=== PATIENT | female | born 1940 | race Caucasian/White ===

== ENCOUNTER 2016-08-05 11:29 | Inpatient (IN) | payer MEDICARE, OTHER ==
--- NOTE | ~2016-08-05 | CN ---
Consultation Report [facility] [address] [place]. [address] NAME: NERISSA SEAY : 40 STATUS : ADM IN PAT#: [id number] AGE: 75 ADM/REG DATE : 08/06/16 MR#: [id number] REPORT SERV DATE: 08/10/16 DICTATED BY: HEMAL GUAMAN DATE: 08/10/16 REPORT STATUS : Draft TRANSCRIBED BY: MODL DATE: 08/10/16 PSYCHIATRIC CONSULTATION DATE OF CONSULTATION: 08/10/2016 I reviewed this patient's medical record. I discussed patient's status with Dr. Cohen who is her current hospitalist. HISTORY OF PRESENT ILLNESS: She was admitted with confusion and progressive paraplegia. She has been episodically agitated since admission. PAST PSYCHIATRIC HISTORY: I previously saw her in consultation on 05/06/2016, when she was admitted with a 2-3 day history of confusion. At that time, the only finding of significance was some mild affective lability on mental status examination. She had her next admission on 06/16/2016 again with a few day history of confusion and also some shortness of breath. During that admission, she was seen by Neurology because she had a reported seizure in her long term. She was started on Keppra and she is still on this medication. Her EEG which was done at that time did not show seizure activity. It did show slowing, consistent with encephalopathy. SOCIAL HISTORY: She used to do secretarial work. 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 Most recently, she has been residing in an assisted living facility. She reports that she really likes the assisted living placement. Her brother is her power of commercial litigation attorney and her healthcare agent. FAMILY HISTORY: No psychiatric illness. MENTAL STATUS: She was very pleasant and cooperative in attitude. She said she remembered me from my previous consultation which was just over 3 months ago. Her mood was euthymic. She was not aware that she had some episodes of agitation since her admission. Her affect was appropriate. Her thinking was logical. She had some paranoid ideation about her brother not giving her the money which she sometimes needs and not handling her affairs in a proper manner. These were somewhat vague accusations and were not quite delusional in degree. She had no current hallucinations. 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 RECOMMENDATIONS: We should consider re-consulting Neurology. There is a possibility that the Jlpp could be contributing to some of her confusion. I think we should continue Seroquel if it appears to be helpful for the episodes of agitation. I will sign off. DK/MODL Consultation Report [facility] [address] [address] NAME: NERISSA SEAY : 40 STATUS : ADM IN PAT#: [id number] AGE: 75 ADM/REG DATE : 08/06/16 MR#: [id number] REPORT SERV DATE: 08/10/16 DICTATED BY: HEMAL GUAMAN DATE: 08/10/16 REPORT STATUS : Draft TRANSCRIBED BY: TIMOTHY DATE: 08/10/16 Hemal Guaman M.D. / [id number] CC: MD Chucho Knox MD
--- NOTE | ~2016-08-05 | HP ---
History And Physical [facility] [id number] [place]. [address] NAME: NERISSA SEAY : 40 STATUS : ADM Dylan PAT#: [id number] AGE: 75 ADM/REG DATE : 08/05/16 MR#: [id number] REPORT SERV DATE: 08/06/16 DICTATED BY: ELIZABETH MATTSON DATE: 08/05/16 REPORT STATUS : Draft TRANSCRIBED BY: MODKaila DATE: 08/05/16 DATE OF ADMISSION: 08/05/2016 CHIEF COMPLAINT: A 75-year-old female presenting with confusion, progressive paraplegia. HISTORY OF PRESENTING ILLNESS: The patient's history was obtained through careful interview with the patient and a phone conversation with her nscoha-fc-jxj, Germaine Lombardi, coupled with review of [facility] medical records. The patient had been residing at [facility], but then a month ago was thought to be stable enough to transition to an assisted living facility in [place], [place]. She has been doing fairly well there, but unfortunately has had decreased mobility to the point where she has only been sitting in a wheelchair "all day long" and has not been able to walk without complete assistance and often needs assistance with other activities of daily living. Of particular concern though is over the last four or five days the patient has become increasingly ill with particular symptoms of agitation, confusion, disorientation. Finally, the patient's symptoms became so severe that she was transferred to our emergency department for further evaluation and stabilization. Apparently, she had one episode of nausea, vomiting, and diarrhea. She has had increasing cough productive of a clear sputum without any green or yellow discoloration though, and she denies any shortness of breath. She denies any pain at all, stating she has no chest pain, no abdominal pain, no headache, no back pain, no joint pain. She has had loss of urine continence, but no other urinary symptoms. No fevers or chills are reported. REVIEW OF SYSTEMS: Otherwise, a 14-point review of systems was obtained and was negative, although could question validity of the patient's answers in light of her confusion and poor recollection of recent history. PAST MEDICAL HISTORY: 1. Diabetes, hemoglobin A1c of 7.4 in June 2016. 2. Atrial fibrillation. 3. Pacemaker. 4. Hypertension. 5. Elevated cholesterol. 6. Anemia. 7. Chronic kidney disease, stage 3. Baseline creatinine of 1.3 to 1.7. History And Physical [address] [address] NAME: NERISSA SEAY : 40 STATUS : ADM Dylan PAT#: [id number] AGE: 75 ADM/REG DATE : 08/05/16 MR#: [id number] REPORT SERV DATE: 08/06/16 DICTATED BY: ELIZABETH MATTSON DATE: 08/05/16 REPORT STATUS : Draft TRANSCRIBED BY: TIMOTHY DATE: 08/05/16 8. Colon polyps seen by Dr. Mustafa. 9. Leg cellulitis. 10.Coronary artery disease, status post stent placement. 11.Seizure disorder, on Keppra. 12.Urinary tract infections. 13.Cholelithiasis. PAST SURGICAL HISTORY: Pacemaker. ALLERGIES: CELEBREX. SOCIAL HISTORY: No tobacco abuse. No alcohol abuse. Resides at an assisted living facility in [place], [place]. Has been a since November 2012. Retired special education secretary. She has no biological children. CODE STATUS: DNR. FAMILY HISTORY: Father at 44 years of age of a heart attack. Brother of liver disease. Mother at 83 years of age of stroke. CURRENT MEDICATIONS: 1. Lipitor 40 mg daily. 2. Dulcolax suppository. 3. Coreg 12.5 mg p.o. b.i.d. 4. Lasix 20 mg daily. 5. Hydrocodone. 6. Sliding-scale insulin. 7. Lantus 20 units subcutaneous in the morning. 8. Keppra 750 mg p.o. b.i.d. 9. Milk of magnesia. 10.Nitroglycerin. 11.Zofran p.r.n. 12.Potassium 20 mEq p.o. daily. 13.Phenergan p.r.n. 14.Altace 2.5 mg daily. 15.Enema as needed. PHYSICAL EXAMINATION: VITAL SIGNS: Temperature 97.7, pulse 68, blood pressure 133/74, respiratory rate 18, and O2 saturation 98% on room air. GENERAL: A chronically ill-appearing female, but in no evidence of overt acute distress. HEENT: Pupils equal, round, and reactive to light. No conjunctival pallor. No scleral icterus. Nares are patent. Oropharynx is clear of obstruction. Very dry mucous membranes. NECK: Trachea midline. No thyromegaly. LYMPH: No cervical lymphadenopathy. No supraclavicular lymphadenopathy. RESPIRATORY: The patient has scattered rhonchi on examination. No overt wheezes though. History And Physical [facility] [address] [place]. [address] NAME: NERISSA SEAY : 40 STATUS : ADM Dylan PAT#: [id number] AGE: 75 ADM/REG DATE : 08/05/16 MR#: [id number] REPORT SERV DATE: 08/06/16 DICTATED BY: ELIZABETH MATTSON DATE: 08/05/16 REPORT STATUS : Draft TRANSCRIBED BY: TIMOTHY DATE: 08/05/16 She has a nonlabored respiratory effort. CARDIOVASCULAR: Regular rate and rhythm. No murmurs, rubs, or gallops. No current extremity edema is appreciated. ABDOMEN: Soft, nontender, and nondistended. Normal bowel sounds auscultated throughout. No flank tenderness. No hepatosplenomegaly. DERMATOLOGICAL: Warm and dry extremities. No pallor. No cyanosis. There is tenting of the skin to suggest dehydration. PSYCHIATRIC: Very irritable and agitated mood with an animated affect. Some time she is actually overtly threatening to me while I am interviewing her. She is alert and she is oriented to location, but poorly oriented to time, and her recent history. LABORATORY DATA: White blood cell count 4.2, hemoglobin 11, hematocrit 32, and platelets 126. Sodium 142, potassium 4.9, chloride 107, bicarb 29, BUN 26, creatinine 1.70, and glucose 192. Liver enzymes within normal limits. Troponin 0.06. ABG demonstrates pH 7.31, a PaCO2 of 50, a pO2 of 88, and bicarb of 24 on 2 L nasal cannula. Urinalysis shows small amount of leukocyte esterase, 14 white blood cells, 73 hyaline casts. STUDIES: 1. Chest x-ray by my own evaluation shows no acute cardiopulmonary process. 2. EKG by my own evaluation shows ventricular pacing. ASSESSMENT AND PLAN: 1. Acute encephalopathy, provide supportive care. 2. Possible urinary tract infection ? For now we will check urine culture and place on empiric IV antibiotics until results are able to rule this out. 3. Dehydration. Place on IV fluids. Hold Lasix. 4. Functional paraplegia. Now has been more and more dependent for activities of daily living and wheelchair bound. We will obtain a physical therapy evaluation, case management evaluation. Question whether the patient needs a long-term placement in a nursing facility or at least good rehab stay ? 5. Pancytopenia. Check thyroid, iron, B12, folate, serum protein electrophoresis. 6. Atrial fibrillation status post cardiac ablation and pacemaker placement. Not placed on anticoagulation, possibly because of fall risk ? 7. DNR status. 8. Acute bronchitis. Place on DuoNeb nebulizers and monitor. NILO/TIMOTHY Elizabeth Montejo History And Physical [address] [address] NAME: NERISSA SEAY : 40 STATUS : ADM Dylan PAT#: [id number] AGE: 75 ADM/REG DATE : 08/05/16 MR#: [id number] REPORT SERV DATE: 08/06/16 DICTATED BY: ELIZABETH MATTSON DATE: 08/05/16 REPORT STATUS : Draft TRANSCRIBED BY: TIMOTHY DATE: 08/05/16 Yoko Mattson / [id number] CC: MD Chucho Knox MD
--- NOTE | ~2016-08-05 | IDS ---
Interim Discharge Summary [facility] [address] [place]. [address] NAME: NERISSA SEAY : 40 STATUS : ADM IN [facility]#: [id number] AGE: 75 ADM/REG DATE : 08/06/16 MR#: [id number] REPORT SERV DATE: 08/11/16 DICTATED BY: CYRUS GARZA DATE: 08/10/16 REPORT STATUS : Draft TRANSCRIBED BY: MODL DATE: 08/10/16 ADMISSION DATE: 08/06/2016 DISCHARGE DATE: WORKING DIAGNOSES: 1. Acute encephalopathy, resolved. 2. Functional paraplegia. 3. Agitations and irritability. 4. Urinary tract infection. 5. Acute kidney injury, resolved. 6. Mild hypercapnic respiratory failure on admission, resolved clinically. CONSULT: Psychiatry. PROCEDURES: None. HOSPITAL COURSE: This is a 75-year-old lady who was admitted to the hospital with acute encephalopathy. For details, please refer to H and P by Dr. Cash. In summary, the patient was admitted for an acute episode of encephalopathy which basically resolved over the first night of hospital stay. The patient was a borderline inpatient admission and it was a difficult situation to plan for a safe discharge because the patient is from an assisted living, but the patient is functionally paraplegic and there was a concern whether the patient will be able to return to her assisted living facility as the patient will need more help than just assisted living. The patient had been at assisted living for about a month and prior to that the patient was at [facility] in [place] and where she has basically used up all of her allowed shelter stays for the entire year. At baseline, the patient is very irritable and aggressive, but she is not really demented as this is more of her baseline personality. Psychiatry was consulted to see if patient will qualify for a Geropsych, but unfortunately, the patient really does not qualify for Geropsych transfer. The patient's fjwshg-pn-uti will have been the only person to visit the patient on regular basis and I believe she is the only closest person here in town. She is willing to take the patient home after hospital bed has been set up at her house which will be told tomorrow. In the meantime, we are trying to see if Physical Therapy can evaluate the patient again, and if the patient is able to transfer from bed to wheelchair as she has done so in the past, then she may be able to go back to her assisted living facility. One challenge is that the patient has been refusing to work with Physical Therapy, but hopefully, the patient will be in a better mood tomorrow. Other mild problems that she had on admission such as a urinary tract infection, acute kidney injury, and mild hypercapnic respiratory failure have all been resolved and the patient has been stable throughout the hospital stay thus far. DISPOSITION: Either discharge to the patient's wxahvd-dl-sah's home tomorrow or return to assisted living if the patient does well with physical therapy. [facility] [place] Interim Discharge Summary [address] [address] NAME: NERISSA SEAY : 40 STATUS : ADM IN [facility]#: [id number] AGE: 75 ADM/REG DATE : 08/06/16 MR#: [id number] REPORT SERV DATE: 08/11/16 DICTATED BY: CYRUS GARZA DATE: 08/10/16 REPORT STATUS : Draft TRANSCRIBED BY: TIMOTHY DATE: 08/10/16 Cyrus Garza MD / [id number] CC: MD Chucho Knox MD
--- NOTE | ~2016-08-05 | DS ---
Discharge Summary [facility] [address] [place]. [address] NAME: NERISSA SEAY : 40 STATUS : DIS IN PAT#: [id number] AGE: 75 ADM/REG DATE : 08/06/16 MR#: [id number] REPORT SERV DATE: 08/13/16 DICTATED BY: DATE: REPORT STATUS : Draft TRANSCRIBED BY: MODL DATE: 08/12/16 ADMISSION DATE: 08/06/2016 DISCHARGE DATE: 08/12/2016 [facility] ATTENDING DOCTORS: 1. Keith Connell M.D. 2. Cyrus Cohen MD. 3. Amari Maciel M.D. CONSULTANTS: Included Dr. Hemal Ospina of Psychiatry. DISCHARGE DIAGNOSES: 1. Generalized weakness. 2. Functional paraplegia. 3. Agitation and irritability - seen by Psychiatry with finding of mild affective lability versus early mild dementia. 4. Acute encephalopathy - resolved. 5. Acute kidney injury - resolved. 6. Mild hypercapnia at admission - resolved. 7. History of sleep apnea. 8. Hypertension. 9. Hyperlipidemia. 10.Chronic kidney disease, stage 2 to 3. 11.History of atrial fibrillation, status post pacemaker placement. 12.Insulin-dependent diabetes mellitus type 2. 13.History of a seizure - on Keppra chronically. 14.History of urinary tract infections - no evidence of urinary tract infection this admission. 15.Obesity. 16.Anemia of chronic kidney disease. 17.History of colon polyps. 18.History of lower extremity cellulitis. 19.History of coronary artery disease and prior stent placement. IMAGING AND DIAGNOSTICS: 1. PA and lateral chest x-ray on 08/05/2016 shows cardiomegaly, pacemaker, shallow inspiration. No acute abnormality. 2. Echocardiogram from 06/17/2016 hospitalization showing mild left ventricular diastolic dysfunction with moderately decreased systolic function, ejection fraction 55%, mild pulmonary hypertension, and moderate tricuspid regurgitation. PERTINENT LABS: Hazy urine with positive protein, small leukocyte esterase, 14 white blood cells, 9 squamous epithelial cells, rare bacteria, and 73 hyaline casts. Discharge Summary [facility] [address] [place]. [address] NAME: NERISSA SEAY : 40 STATUS : DIS IN PAT#: [id number] AGE: 75 ADM/REG DATE : 08/06/16 MR#: [id number] REPORT SERV DATE: 08/13/16 DICTATED BY: DATE: REPORT STATUS : Draft TRANSCRIBED BY: MODL DATE: 08/12/16 Blood cultures x2, no growth during the hospitalization and urine culture showed 75,000 colony-forming units of mixed isma suggestive of contamination. Serum protein electrophoresis, which was normal. B12 of 428, folate of 9.8, and sedimentation rate 44. BRIEF HISTORY: For full details, please see the previously dictated history of present illness by Dr. Jarod Cash. The patient is a 75-year-old white female, who due to chronic medical issues and obesity has developed a diagnosis of functional paraplegia. She had been residing at [facility], about a month ago was felt stable enough to transition to an assisted living facility in [place], [place]. She was doing fairly well there, but then experienced decreased mobility to the point where she was sitting in the wheelchair "all day long" and was unable to walk without complete assistance. Then, over the preceding 4 to 5 days, the patient became agitated, confused, and disoriented. Apparently, she had an episode of nausea, vomiting, and diarrhea as well as a cough productive of clear sputum, and some loss of urinary continence. She was brought to the [facility] Emergency Department for evaluation, where she was felt to have a possible urinary tract infection as well as dehydration and possible acute bronchitis. She was admitted to the Hospitalist Service for further management. HOSPITAL COURSE: The patient was placed on empiric Rocephin. Subsequent urine cultures were negative. Chest x-ray was clear and the antibiotic was discontinued as the patient did not appear to actually have acute infection. Her encephalopathy resolved after the first night of hospitalization. The patient worked with Physical Therapy, but remained too weak to return to assisted living at the time of discharge as she was unable to transfer or use the bathroom independently. Because the patient has exhausted her allowed longterm days for the year, she was not appropriate for return to a prison facility either. Thus, the patient is being discharged home with her yoercz-zs-yzx, Germaine Dallas, with additional home health and home physical therapy. Another issue this hospitalization was irritability, aggressive behavior, and agitation. The patient was seen by Psychiatry and not felt to have dementia per se. In extensive discussions with her zyfrrz-sb-dto, this may be the patient's baseline personality, and she may have a personality disorder. She was treated with Seroquel for acute agitation which did result in some improvement in her ability to tolerate the hospital stay, and resulted in improved interactions with others while she was in the hospital. This medication will be continued as an outpatient. The patient continued to complain of occasional wheezing during the hospitalization. Chest x-rays remained clear, and she again was not felt to have an indication for an antibiotic. She was placed on DuoNebs with improvement and this will be continued as an outpatient. Based on prior sleep study results and echocardiogram results, she does appear to have some obstructive sleep apnea and possible right heart strain. She is being continued on a diuretic as well and this can be re-evaluated as an outpatient. DISCHARGE DISPOSITION: To the patient's hgvtkg-rg-dud's house with no specific activity restrictions. She should adhere to a diabetic and cardiac diet for comorbidities. Home Discharge Summary [address] [address] NAME: NERISSA SEAY : 40 STATUS : DIS IN PAT#: [id number] AGE: 75 ADM/REG DATE : 08/06/16 MR#: [id number] REPORT SERV DATE: 08/13/16 DICTATED BY: DATE: REPORT STATUS : Draft TRANSCRIBED BY: TIMOTHY DATE: 08/12/16 health for prison and physical therapy are being set up, and the patient needs to follow up with Dr. Fernandez in 1 to 2 weeks. DISCHARGE MEDICATIONS: Include: 1. Atorvastatin 40 mg p.o. at bedtime. 2. Coreg 12.5 mg p.o. twice a day. 3. Lantus 20 units subcu q.a.m. 4. NovoLog FlexPen sliding scale before meals t.i.d. 5. Keppra 750 mg p.o. twice a day. 6. Altace 2.5 mg p.o. q.a.m. 7. Seroquel 25 mg p.o. twice a day. 8. DuoNeb 3 mL inhaled every 6 hours while awake. 9. Lasix 20 mg p.o. daily. 10.Potassium chloride 20 mEq p.o. daily. 11.Dulcolax 10 mg P.R. daily p.r.n. constipation. 12.Enema 1 dose daily as needed for constipation. 13.Hydrocodone/acetaminophen 5/325 mg, one tablet p.o. twice a day as needed. 14.Milk of magnesia 30 mL p.o. daily as needed for constipation. 15.Sublingual nitroglycerin 0.4 mg as needed for chest pain. 16.Zofran 4 mg p.o. every 4 hours as needed. 17.Phenergan 25 mg p.o. every 4 hours as needed. Prescriptions were provided for Ozzy Coleman, and for a nebulizer. Forty minutes was spent in completion of the discharge. MARY/TIMOTHY ari Maciel M.D. / [id number] CC: Yoko Read MD
[~2016-08-05 11:29] MED LIST: ACET500CAP PO; ADVIL PO; AMARYL2 PO; AQUASOL E50 UNT/ML PO; ARANESP200 IV; BISR PR; CALTRA600D PO; COREG12 PO; COREG25 PO; COZ25 PO; COZ50 PO; COZAAR100 MG PO; DABIGATRAN; DSS PO; FERROUS SULF325 M1 PO; FISH-EPA1000 MG PO; GLUCOPHAGE1000 MG PO; GLUCPH PO; HYDRALAZINE100 MG PO; HYZAAR 50/12.51 TAB PO; IMOD PO; K-TABS10 MEQ PO; KDUR20 PO; KLOR-CON M2020 MEQ PO; L20 PO; L40 PO; L80 PO; LANTUS SC; LANTUSCART SC; MAGOX4 PO; MCZ25 PO; MOMUD PO; NITROSTAT0.4 MG SL; NORCO1 TA1 PO; NOVOPEN SC; NTG150 SL; PR12.5 PO; PR25 PO; PRADAXA150 MG PO; PRADAXA75 MG PO; PRAVAC PO; SLOW FE160 MG PO; SPIRO25 PO; TRILIPIX45 MG PO; [UNRECOGNIZED DRUG - OTHER]
[2016-08-05 13:51] LABS: BASOPHILS 0.5 %; BASOPHILS ABSOLUTE 0.02 10/3/uL (0.0-0.16); EOSINOPHILS 1.2 %; EOSINOPHILS ABSOLUTE 0.05 10/3/uL (0.0-0.53); HEMATOCRIT 32.1 % (36.0-48.0); HEMOGLOBIN 10.6 g/dL (12.0-16.0); IMMATURE GRANULOCYTES 0.2 %; IMMATURE GRANULOCYTES ABSOLUTE 0.01 10/3/uL (0.0-0.11); LYMPHOCYTES 14.2 %; LYMPHOCYTES ABSOLUTE 0.59 10/3/uL (0.67-4.30); MEAN CORPUSCULAR HEMOGLOB 29.7 pg (26.0-34.0); MEAN CORPUSCULAR VOLUME 89.9 fL (80-100); MEAN PLATELET VOLUME 9.4 fL (9.2-13.0); MONOCYTES 13.7 %; MONOCYTES ABSOLUTE 0.57 10/3/uL (0.21-1.20); NEUTROPHILS 70.2 %; NEUTROPHILS ABSOLUTE 2.92 10/3/uL (2.02-8.40); PLATELET COUNT 126 10/3/uL (150-400); RBC DISTRIBUTION WIDTH 16.3 % (12.0-16.0); RED CELL COUNT 3.57 10/6/uL (4.0-5.6); WHITE BLOOD CELLS 4.2 10/3/uL (4.5-10.5)
[2016-08-05 13:52] LABS: MANUAL DIFF NO %
[2016-08-05 14:07] LABS: A/G RATIO 0.8 (0.7-1.9); ALBUMIN 3.4 G/DL (3.5-5.0); ALKALINE PHOSPHATASE 81 U/L (45-117); BUN (BLOOD UREA NITROGEN) 26 MG/DL (6-23); CHLORIDE, SERUM 107 MMOL/L (96-112); CO2 (CARBON DIOXIDE) 27 MMOL/L (24-34); GFR AFRICAN AMERICAN 34 ML/MIN (>=60); GFR NON AFRICAN AMERICAN 29 ML/MIN (>=60); GLOBULIN 4.1 G/DL (2.5-4.1); GLUCOSE, SERUM 192 MG/DL (60-99); POTASSIUM, SERUM 4.9 MMOL/L (3.5-5.3); SGOT(AST) 10 U/L (5-40); SGPT(ALT) 13 U/L (5-65); SODIUM, SERUM 142 MMOL/L (135-148); TOTAL BILIRUBIN 1.2 MG/DL (0-1.2); TOTAL PROTEIN 7.5 G/DL (6.0-8.5)
[2016-08-05 14:08] LABS: TROPONIN I 0.06 NG/ML (<0.05)
[2016-08-05 14:15] LABS: ASCORBIC ACID (UR NOT ORDER) NEG (NEG); BILIRUBIN, URINE NEGATIVE (NEG); ER URINALYSIS TAT 0 Hrs 13 Mins; KETONE, URINE NEGATIVE (NEG); LEUKOCYTE ESTERASE(NOT OR SMALL (NEG); NITRITE (URINE) NEG (NEG); WBC (NOT ORDERED) (RFLEX) 14 (0-5)
[2016-08-05 17:28] LABS: BE (BASE EXCESS) -2.2 MEQ/L (0 +/- 2.5); CARBOXYHEMOGLOBIN 1.4 % (0-3); DEVICE NC; HCO3 (ACTUAL BICARBONATE) 24.3 MEQ/L (23-27); HEMOBLOGIN CONTENT 10.6 G/DL (12-16); INSTRUMENT SERIAL # 8087; METHEMOGLOBIN 0.2 % (0-3); O2 CONTENT 14.1 VOL% (18-24); PCO2 (CO2 TENSION) 50 MMHG (35-45); PO2 (O2 TENSION) 88 MMHG (79-93); SAMPLE Arterial; pH 7.31 (7.37-7.43)
[2016-08-05 17:29] LABS: ALLENS TEST Pos
[2016-08-05] MEDS ORDERED: L20 PO (18:33)
[2016-08-05] MEDS ORDERED: COREG12 PO (18:33)
[2016-08-05] MEDS ORDERED: LIPITOR40 PO (18:33)
[2016-08-05] MEDS ORDERED: LANTUSCART SC (18:33)
[2016-08-05] MEDS ORDERED: KEPPRA750 MG PO (18:33)
[2016-08-05] MEDS ORDERED: KLOR-CON M2020 MEQ PO (18:34)
[2016-08-05] MEDS ORDERED: ALTA2.5 PO (18:34)
[2016-08-05] MEDS ORDERED: BISR PR (18:35)
[2016-08-05] MEDS ORDERED: [UNRECOGNIZED DRUG - OTHER] PR (18:36)
[2016-08-05] MEDS ORDERED: NORCO1 TA1 PO (18:36)
[2016-08-05] MEDS ORDERED: NOVOPEN SC (18:37)
[2016-08-05] MEDS ORDERED: NITROSTAT0.4 MG PO (18:37)
[2016-08-05] MEDS ORDERED: MOMUD PO (18:37)
[2016-08-05] MEDS ORDERED: ZOFRAN ODT4 MG PO (18:38)
[2016-08-05] MEDS ORDERED: PR25 PO (18:38)
[2016-08-06 04:57] LABS: BASOPHILS 0.9 %; BASOPHILS ABSOLUTE 0.03 10/3/uL (0.0-0.16); EOSINOPHILS ABSOLUTE 0.07 10/3/uL (0.0-0.53); HEMOGLOBIN 9.2 g/dL (12.0-16.0); IMMATURE GRANULOCYTES 0.3 %; IMMATURE GRANULOCYTES ABSOLUTE 0.01 10/3/uL (0.0-0.11); LYMPHOCYTES 21.4 %; LYMPHOCYTES ABSOLUTE 0.74 10/3/uL (0.67-4.30); MEAN CORPUSCULAR HEMOGLOB 30.1 pg (26.0-34.0); MEAN CORPUSCULAR VOLUME 91.2 fL (80-100); MEAN PLATELET VOLUME 9.2 fL (9.2-13.0); MONOCYTES 16.2 %; MONOCYTES ABSOLUTE 0.56 10/3/uL (0.21-1.20); NEUTROPHILS 59.2 %; NEUTROPHILS ABSOLUTE 2.05 10/3/uL (2.02-8.40); PLATELET COUNT 99 10/3/uL (150-400); RBC DISTRIBUTION WIDTH 16.6 % (12.0-16.0); RED CELL COUNT 3.06 10/6/uL (4.0-5.6); WHITE BLOOD CELLS 3.5 10/3/uL (4.5-10.5)
[2016-08-06 05:00] LABS: INTERNATIONAL NORMAL RATI 1.3 UNITS (-); PARTIAL THROMBO TIME 27.3 SEC (22.5-37.2); PROTIME (NOT ORD) 16.5 SEC (12.0-14.5)
[2016-08-06 05:04] LABS: HEMATOCRIT 27.9 % (36.0-48.0); MANUAL DIFF NO %
[2016-08-06 05:43] LABS: A/G RATIO 0.9 (0.7-1.9); ALKALINE PHOSPHATASE 73 U/L (45-117); BUN (BLOOD UREA NITROGEN) 26 MG/DL (6-23); CALCIUM, SERUM 8.5 MG/DL (8.5-10.4); CHLORIDE, SERUM 108 MMOL/L (96-112); CO2 (CARBON DIOXIDE) 29 MMOL/L (24-34); CREATININE 1.43 MG/DL (0.55-1.02); FERRITIN 147 NG/ML (8-252); GFR AFRICAN AMERICAN 41 ML/MIN (>=60); GFR NON AFRICAN AMERICAN 36 ML/MIN (>=60); GLOBULIN 3.5 G/DL (2.5-4.1); IRON BINDING CAPACITY 216 MCG/DL (225-410); IRON, SERUM 41 MCG/DL (35-150); POTASSIUM, SERUM 4.5 MMOL/L (3.5-5.3); SGOT(AST) 12 U/L (5-40); SGPT(ALT) 11 U/L (5-65); SODIUM, SERUM 144 MMOL/L (135-148); TOTAL PROTEIN 6.5 G/DL (6.0-8.5)
[2016-08-06 05:46] LABS: FOLATE 9.8 NG/ML (>5.2); GLUCOSE, SERUM 151 MG/DL (60-99); T PROTEIN (ELECT)(NOT OR 6.1 G/DL (6.0-8.5); TOTAL BILIRUBIN 0.5 MG/DL (0-1.2); TROPONIN I 0.05 NG/ML (<0.05)
[2016-08-06 06:48] LABS: SED RATE 44 MM/HR (0-20)
[2016-08-06 11:34] LABS: A/G 1.25 RATIO (0.9-2.10); ALB RELATIVE % 55.5 % (60.0-89.0); ALBUMIN (ELECTRO) 3.39 GM/DL (3.2-5.5); ALPHA 1 (ELECTRO) 0.23 GM/DL (0.1-0.4); ALPHA 1 RELAT % (NOT ORD) 3.7 % (1.0-4.0); ALPHA 2 (ELECTRO) 0.72 GM/DL (0.5-1.10); ALPHA 2 RELAT % 11.8 % (4.5-26.0); BETA GLOBULIN (SPE) 0.76 GM/DL (0.60-1.30); BETA RELATIVE % 12.5 % (9.0-22.0); GAMMA GLOBULIN (SPE) 1.01 G/DL (0.70-1.60); GAMMA RELAT % 16.5 % (6.0-22.0)
[2016-08-07 06:09] LABS: BASOPHILS 0.6 %; BASOPHILS ABSOLUTE 0.03 10/3/uL (0.0-0.16); EOSINOPHILS 4.9 %; EOSINOPHILS ABSOLUTE 0.25 10/3/uL (0.0-0.53); HEMATOCRIT 29.5 % (36.0-48.0); HEMOGLOBIN 9.9 g/dL (12.0-16.0); IMMATURE GRANULOCYTES 0.4 %; IMMATURE GRANULOCYTES ABSOLUTE 0.02 10/3/uL (0.0-0.11); LYMPHOCYTES 18.7 %; LYMPHOCYTES ABSOLUTE 0.95 10/3/uL (0.67-4.30); MEAN CORPUS HGB CONC 33.6 g/dL (32.0-36.0); MEAN CORPUSCULAR HEMOGLOB 30.5 pg (26.0-34.0); MEAN CORPUSCULAR VOLUME 90.8 fL (80-100); MEAN PLATELET VOLUME 9.7 fL (9.2-13.0); MONOCYTES 17.8 %; NEUTROPHILS 57.6 %; NEUTROPHILS ABSOLUTE 2.92 10/3/uL (2.02-8.40); PLATELET COUNT 97 10/3/uL (150-400); RBC DISTRIBUTION WIDTH 16.7 % (12.0-16.0); RED CELL COUNT 3.25 10/6/uL (4.0-5.6)
[2016-08-07 06:12] LABS: MANUAL DIFF NO %; WHITE BLOOD CELLS 5.1 10/3/uL (4.5-10.5)
[2016-08-07 06:24] LABS: CALCIUM, SERUM 8.6 MG/DL (8.5-10.4); CHLORIDE, SERUM 107 MMOL/L (96-112); CO2 (CARBON DIOXIDE) 28 MMOL/L (24-34); CREATININE 1.29 MG/DL (0.55-1.02); GFR AFRICAN AMERICAN 47 ML/MIN (>=60); GFR NON AFRICAN AMERICAN 40 ML/MIN (>=60); POTASSIUM, SERUM 4.2 MMOL/L (3.5-5.3); SODIUM, SERUM 142 MMOL/L (135-148)
[2016-08-07 06:26] LABS: BUN (BLOOD UREA NITROGEN) 22 MG/DL (6-23); GLUCOSE, SERUM 97 MG/DL (60-99)
[2016-08-09 05:19] LABS: BASOPHILS 1.1 %; BASOPHILS ABSOLUTE 0.04 10/3/uL (0.0-0.16); EOSINOPHILS 6.1 %; EOSINOPHILS ABSOLUTE 0.22 10/3/uL (0.0-0.53); HEMATOCRIT 30.1 % (36.0-48.0); IMMATURE GRANULOCYTES 0.3 %; IMMATURE GRANULOCYTES ABSOLUTE 0.01 10/3/uL (0.0-0.11); LYMPHOCYTES 23.4 %; LYMPHOCYTES ABSOLUTE 0.84 10/3/uL (0.67-4.30); MANUAL DIFF NO %; MEAN CORPUS HGB CONC 33.2 g/dL (32.0-36.0); MEAN CORPUSCULAR VOLUME 90.4 fL (80-100); MEAN PLATELET VOLUME 9.6 fL (9.2-13.0); MONOCYTES 13.6 %; MONOCYTES ABSOLUTE 0.49 10/3/uL (0.21-1.20); NEUTROPHILS 55.5 %; NEUTROPHILS ABSOLUTE 1.99 10/3/uL (2.02-8.40); PLATELET COUNT 109 10/3/uL (150-400); RBC DISTRIBUTION WIDTH 16.5 % (12.0-16.0); RED CELL COUNT 3.33 10/6/uL (4.0-5.6); WHITE BLOOD CELLS 3.6 10/3/uL (4.5-10.5)
[2016-08-09 05:30] LABS: CALCIUM, SERUM 8.5 MG/DL (8.5-10.4); CHLORIDE, SERUM 109 MMOL/L (96-112); CO2 (CARBON DIOXIDE) 29 MMOL/L (24-34); CREATININE 1.02 MG/DL (0.55-1.02); GFR AFRICAN AMERICAN 62 ML/MIN (>=60); GFR NON AFRICAN AMERICAN 54 ML/MIN (>=60); POTASSIUM, SERUM 3.8 MMOL/L (3.5-5.3); SODIUM, SERUM 146 MMOL/L (135-148)
[2016-08-09 05:34] LABS: BUN (BLOOD UREA NITROGEN) 18 MG/DL (6-23); GLUCOSE, SERUM 72 MG/DL (60-99)
[2016-08-12] MEDS ORDERED: SEROQUEL25 PO (12:29)
[2016-08-12] MEDS ORDERED: DUONEB INH ×2 (12:29→13:46)
== END 2016-08-12 14:45 | disposition home or self-care (01) | DRG 70 ==
LOC: ER 11:29 → 4SO 19:22
PROVIDERS: Emergency Medicine; Hospitalist; Internal Medicine
DX: G93.40 Encephalopathy, unspecified (principal); J96.92 Respiratory failure, unspecified with hypercapnia; N17.9 Acute kidney failure, unspecified; D61.818 Other pancytopenia; E11.22 Type 2 diabetes mellitus with diabetic chronic kidney disease; N18.3 Chronic kidney disease, stage 3 (moderate); F03.90 Unspecified dementia, unspecified severity, without behavioral disturbance, psychotic disturbance, mood disturbance, and anxiety; N39.0 Urinary tract infection, site not specified; E11.65 Type 2 diabetes mellitus with hyperglycemia; E86.0 Dehydration; I48.2 Chronic atrial fibrillation; I12.9 Hypertensive chronic kidney disease with stage 1 through stage 4 chronic kidney disease, or unspecified chronic kidney disease; F44.4 Conversion disorder with motor symptom or deficit; Z79.01 Long term (current) use of anticoagulants; Z86.010 Personal history of colon polyps; I25.10 Atherosclerotic heart disease of native coronary artery without angina pectoris; Z95.5 Presence of coronary angioplasty implant and graft; G40.909 Epilepsy, unspecified, not intractable, without status epilepticus; Z95.0 Presence of cardiac pacemaker; Z87.440 Personal history of urinary (tract) infections; Z88.8 Allergy status to other drugs, medicaments and biological substances; Z66 Do not resuscitate; Z79.891 Long term (current) use of opiate analgesic; Z79.4 Long term (current) use of insulin; Z99.3 Dependence on wheelchair; J20.9 Acute bronchitis, unspecified; R53.1 Weakness; E78.5 Hyperlipidemia, unspecified; D63.1 Anemia in chronic kidney disease; F60.89 Other specific personality disorders
CPT/HCPCS: 36600; 71010; 71020; 80048; 80053; 81001; 82607; 82728; 82746; 82805; 82962; 83540; 83550; 83735; 83880; 84155; 84165; 84443; 84484; 85025; 85610; 85652; 85730; 87040; 87086; 93005; 94640; 96374; 97162-GP; 97530-GP; 99285; A9270-GY; G8978-CM-GP; G8979-CL-GP; J0360; J3486